=== PATIENT | male | born 1970 | race Two or more races ===

== ENCOUNTER → 2025-04-04 | Outpatient (BNVA) | payer MEDICARE, MEDICAID, SELFPAY | END | disposition home or self-care (01) | PROVIDERS: PCP Family Medicine; Referring Provider Family Medicine; Visit Provider Urology | DX: N40.1 Benign prostatic hyperplasia with lower urinary tract symptoms (principal); N13.8 Other obstructive and reflux uropathy; N50.3 Cyst of epididymis; F17.210 Nicotine dependence, cigarettes, uncomplicated; E78.00 Pure hypercholesterolemia, unspecified; K21.9 Gastro-esophageal reflux disease without esophagitis | CPT/HCPCS: 81003; 99212; G0463 ==

== ENCOUNTER 2025-07-11 06:38 | Day surgery (SDC) | payer MEDICARE, MEDICAID, SELFPAY ==
[2025-07-07 09:12] VITALS: BMI 24.4
--- NOTE | 2025-07-10 07:00 | EKG_ITS ---
[facility] Test Date: 2025-07-10 Pat Name: JOSE STERNODepartment: Room: - Gender: Male Transportation Assistant: RT STUDENT : 1970 Requested By: Ellie Roque Order Number: [id number] Reading MD: Ellie Roque Measurements Intervals [place] Rate: 64 P: 66 DC: 177 QRS: 33 QRSD: 101 T: 17 QT: 400 QTc: 414 Interpretive Statements SINUS RHYTHM POSSIBLE RIGHT VENTRICULAR CONDUCTION DELAY [RSR (QR) IN V1/V2] Compared to ECG 02/03/2023 09:47:15 No significant changes /store/S0/[id number]
[2025-07-10 11:25] LABS: Basophils # (Auto) 0.1 Thou/mm3 (0.0-0.2); Basophils % (Auto) 1 % (0-2.5); Eosinophils # (Auto) 0.2 Thou/mm3 (0.0-0.5); Eosinophils % (Auto) 3 % (0-10); Hematocrit 44.6 % (41.0-53.0); Hemoglobin 15.2 g/dL (13.5-16.0); Immature Granulocytes Auto 0.01 Thou/mm3 (0.00-0.00); Lymphocytes # (Auto) 2.1 Thou/mm3 (1.0-4.8); Lymphocytes % (Auto) 35 % (10-50); Mean Corpuscular HGB Conc 34.1 g/dl (31.0-37.0); Mean Corpuscular Hemoglobin 30.5 pg (25.0-35.0); Mean Corpuscular Volume 90 fL (80-100); Monocytes # (Auto) 0.5 Thou/mm3 (0.0-0.8); Monocytes % (Auto) 8 % (0-12); Neutrophils # (Auto) 3.2 Thou/mm3 (1.8-7.7); Neutrophils % (Auto) 53 % (37-80); Nucleated Red Blood Cell # 0.00 Thou/mm3 (0.00-0.00); Nucleated Red Blood Cell % 0 /100 WBC (0); Platelet Count 308 Thou/mm3 (140-440); RDW Standard Deviation 41.7 fL (35.1-43.9); Red Blood Count 4.98 Miln/mm3 (4.50-5.90); White Blood Count 6.0 Thou/mm3 (3.8-10.6)
[2025-07-10 11:28] LABS: Anion Gap 7 (7-16); BUN/Creatinine Ratio 6 Ratio (12-20); Blood Urea Nitrogen 5 mg/dL (9-23); Calcium 9.6 mg/dL (8.3-10.6); Carbon Dioxide 29.7 mMol/L (20.0-31.0); Chloride 107 mMol/L (98-107); Creatinine (Component) 0.8 mg/dL (0.6-1.3); Estimated Creatinine Clearance 96.4 mL/min (>60); Glucose 95 mg/dL (74-106); Osmolality,Calculated 284 (275-295); Potassium 4.2 mMol/L (3.4-5.1); Sodium 144 mMol/L (136-145); eGFR > 60 See Note
[2025-07-10 11:37] LABS: INR 1.0 (0.9-1.3); Partial Thromboplastin Time 26.0 Seconds (22.0-36.0); Prothrombin Time 11.1 Seconds (9.0-12.2)
[2025-07-11] VITALS (14 sets, daily range): BP systolic 95–137; BP diastolic 62–88; PULSE 53–73; RESP 12–21; TEMP 36.2–37; O2SAT 95–98; BMI 25.0
[2025-07-11] MEDS: DIAZEPAM 5 MG TABLET PO (07:18)
--- NOTE | 2025-07-11 08:36 | PD.CARDCATH ---
Cardiac Cath Procedure Procedure Narrative Procedure date 07/11/2025 Title of the procedure 1.left heart catheterization 2.left coronary angiogram 3.right coronary angiogram 4.left ventriculogram 5.conscious sedation 6.radiographic interpretation and supervision 7.ultrasound guidance for right radial access Indication for the procedure This is a 54-year-old gentleman with past medical history of hypertension hyperlipidemia Complains of recurrent anterior chest pain Cardiolite scan was equivocal We continued medical management patient chest pain was getting worse We decided to proceed with invasive assessment Procedure This is done in the cardiac lab under current electrocardiographic monitoring intermittent blood pressure monitoring Right radial access obtained using ultrasound guidance TIG 4 catheter used for selective in the left coronary artery TIG 4 catheter was used for selective in the right coronary artery TIG 4 catheter used for selective injection of the left ventriculogram Findings Hemodynamics Overall left ventricular systolic function appears normal Approximate ejection fraction 55% End-diastolic pressure was 16 mmHg There is no gradient across the aortic valve Coronary anatomy 1.left Main coronary artery appears normal 2.left anterior descending artery does not seem to have any significant lesion 3.circumflex appears to have luminal irregularities, obtuse marginal appears normal 4.right coronary is a dominant vessel that appears normal Conclusion No significant coronary lesion Continue medical management
[2025-07-11] MEDS: SODIUM CHLORIDE 0.45 % 500 ML 100 ML IV (08:45)
[2025-07-11] MEDS: SODIUM CHLORIDE 0.45 % 1,000 ML 300 ML IV (10:05)
== END 2025-07-11 11:50 | disposition home or self-care (01) ==
PROVIDERS: Referring Provider Internal Medicine; Visit Provider Internal Medicine
PROC: (CPT 93458; principal; 2025-07-11 07:45)
DX: R07.89 Other chest pain (principal); Z01.810 Encounter for preprocedural cardiovascular examination; E78.5 Hyperlipidemia, unspecified; I10 Essential (primary) hypertension; Z79.899 Other long term (current) drug therapy; Z79.82 Long term (current) use of aspirin
CPT/HCPCS: 93458; 36415; 80048; 85025; 85610; 85730; 93005; 99152; A4649; C1769; C1887; C1894; J0168; J0461; J0583; J1643; J2250; J2312; J2371; J3010; J3490; J7030; Q9967; A9270; J2305

== ENCOUNTER 2025-08-22 14:30 | Outpatient (RCR) | payer MEDICARE, MEDICAID, SELFPAY ==
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
--- NOTE | 2025-08-22 14:47 | PTNOTE_ITS ---
PT Outpatient Daily Note OP Daily Note Outpatient Physical Therapy Treatment Date: 08/22/25 Visit Reasons: right shoulder pain Subjective: Pt reports R shoulder is still painful and sore. Objective: Please see flow sheet for the isidoro list. Assessment: Pt tends to perform interventions quickly, verbal cues to slow down focus on technique and not on speed. Plan: Continue with pOC. Length of Time (minutes) of Treatment: 30 Minutes DIRECTOR OF MEDICAL STAFF SERVICES Service Modifier Method I: Divide the number of min of care provided by the DIRECTOR OF MEDICAL STAFF SERVICES/MANAGER STONE by the total min of care provided then multiply by 100. If greater than 11 percent modifier is required. Method II: Divide the total time of care provided to patient by 10 (round to the nearest whole number) and add 1 min. to set the minimum time requirement. If treatment total was 60 min., then 10% of 6 min PT CQ modifier applied: CQ Modifier applied Procedure Charges Therapeutic Exercise 30 minutes: Yes
--- NOTE | 2025-09-13 09:58 | PTNOTE_ITS ---
PT OP Progress/Discharge Note Date of Service: 09/13/25 Progress Note/DC Note Progress Note/Discharge Note: DC Note Patient Information Visit Reasons: right shoulder pain Service Discharge Date: 09/13/25 Status Assessment: Pt has been seen for 2 visits (eval + 1 visit). Pt no showed multiple appts (08/17, 08/28, and 08/30). At this time Pt will be d/c from care due to non- compliance per attendance policy. Pt did not meet set goals in therapy; thank you for your referrals.
== END 2025-08-25 23:59 | disposition home or self-care (01) ==
LOC: CPTX 14:30
PROVIDERS: PCP Family Medicine; Referring Provider Family Medicine; Visit Provider Family Medicine
DX: M25.511 Pain in right shoulder (principal)
CPT/HCPCS: 97110; 97162

== ENCOUNTER → 2025-09-20 | Outpatient (CLI) | payer MEDICARE, MEDICAID, SELFPAY ==
[2025-09-20 16:05] LABS: Prostate Specific Antigen 1.04 ng/mL (0-4.00)
== END | disposition home or self-care (01) ==
LOC: COPL 14:57
PROVIDERS: PCP Family Medicine; Referring Provider Urology; Visit Provider Urology
DX: Z12.5 Encounter for screening for malignant neoplasm of prostate (principal)
CPT/HCPCS: 36415; 84153

== ENCOUNTER → 2025-10-09 | Outpatient (BNVA) | payer MEDICARE, MEDICAID, SELFPAY | END | disposition home or self-care (01) | PROVIDERS: PCP Family Medicine; Referring Provider Family Medicine; Visit Provider Urology | DX: N40.1 Benign prostatic hyperplasia with lower urinary tract symptoms (principal); N13.8 Other obstructive and reflux uropathy; R35.0 Frequency of micturition; R35.1 Nocturia | CPT/HCPCS: 81003; 99212; 99213; G0463 ==